=== PATIENT | female | born 1995 | race Hispanic/Latino ===

== ENCOUNTER 2022-11-11 23:36 | Emergency (ER) | payer MEDICAID, OTHER, SELFPAY ==
[2022-11-12] MEDS ORDERED: Morphine 4 MG/ML VIAL ONE ×3 (00:29→06:50)
[2022-11-12 00:30] LABS: #Lymphocytes 1.4 thou/uL (1.20-3.40); #Monocytes 0.5 thou/uL (0.11-0.59); #Neutrophils 9.3 thou/uL (1.40-6.50); %Basophils 0.3 % (0.0-1.0); %Eosinophils 0.3 % (0.0-10.0); %Lymphocytes 12.2 % (21.0-51.0); %Monocytes 4.8 % (0.0-10.0); %Neutrophils 82.3 % (42.0-75.0); Hematocrit 35.4 % (36.0-47.0); Hemoglobin 11.7 g/dL (12.0-16.0); INR-International Normal Ratio 0.9; Mean Corpuscular HGB CONC 33.1 g/dL (32.0-36.0); Mean Corpuscular Hemoglobin 30.1 pg (27.0-31.0); Mean Corpuscular Volume 91.1 fl (78.0-98.0); Mean Platelet Volume 5.8 fL (7.4-10.4); Platelet Count 424 10x3/uL (130-400); Prothrombin Time 12.8 sec (12.0-14.7); RBC Distribution Width 12.4 % (11.5-14.5); Red Blood Cell (RBC) Count 3.88 mill/uL (4.20-5.40); White Blood Cell (WBC) Count 11.3 10x3/uL (4.8-10.8)
[2022-11-12] MEDS ORDERED: hydrALAZINE 20 MG/ML VIAL ONE ×2 (00:30→02:30)
[2022-11-12] MEDS ORDERED: Ondansetron PF 4 MG/2 ML Vial ONE (00:30)
[2022-11-12 00:31] LABS: PTT 29.3 sec (22.9-36.1)
[2022-11-12 00:38] LABS: ALT (SGPT) 38 U/L (8-55); AST (SGOT) 52 U/L (5-34); Albumin 3.5 g/dL (3.5-5.0); Alkaline Phosphatase 277 U/L (40-110); Anion Gap 18 mmol/L (10-20); BUN (Urea Nitrogen) 11 mg/dL (7.0-18.7); Bilirubin, Total 1.1 mg/dL (0.2-1.2); Calc. Creatinine Clearance 0 mL/min (70-130); Calcium 8.6 mg/dL (7.8-10.44); Carbon Dioxide 22 mmol/L (22-29); Chloride 105 mmol/L (98-107); Estimated GFR 107; Globulin 3.7 g/dL (2.4-3.5); Glucose 124 mg/dL (70-105); Potassium 4.3 mmol/L (3.5-5.1); Protein, Total 7.2 g/dL (6.0-8.3); Sodium 141 mmol/L (136-145)
[2022-11-12 00:44] LABS: Troponin I Less than 0.010 ng/mL (< 0.028)
[2022-11-12 01:57] LABS: Lipase 85 U/L (8-78)
[2022-11-12 02:10] LABS: Bilirubin Negative (Negative); Blood, Urine Large (Negative); Clarity Clear (Clear); Glucose, Urine (Dipstick) Negative (Negative); Ketone, Urine Negative (Negative); Leukocyte Negative (Negative); Nitrite Negative (Negative); Protein, Urine (Dipstick) 30 mg/dL (Neg-Trace); Specific Gravity, Urine 1.015 (1.005-1.030); pH, Urine 5.5 (5.0-9.0)
[2022-11-12 02:20] LABS: Bacteria/HPF None Seen HPF (None Seen); CAUTI Indications for Culture Fever or rigors; Squamous Epithelial 0-3 HPF (0-3); WBC/HPF 0-3 HPF (0-3)
[2022-11-12 02:21] LABS: Urine Culture Reflex No No
[2022-11-12] MEDS ORDERED: cefTRIAXone (ROCEPHIN) 2 GM VIAL ONE (07:29)
[2022-11-12] MEDS ORDERED: Sodium Chloride 0.9% 100 ML ONE (07:29)
[2022-11-12] MEDS ORDERED: Labetalol HCl 100 MG/20 ML VIAL ONE (07:46)
[2022-11-12] MEDS ORDERED: Iopamidol 370 76% 100 ML VIAL ONE (09:44)
== END 2022-11-12 08:30 | disposition short-term general hospital (02) ==
LOC: BURERS 23:36
DX: K85.90 Acute pancreatitis without necrosis or infection, unspecified (principal); I10 Essential (primary) hypertension
CPT/HCPCS: 36415; 71045; 74177; 80053; 81001; 83605; 83690; 83880; 84484; 85025; 85610; 85730; 87040; 93005; 96361; 96365; 96375; 96376; J0360; J0696; J2270; J2405; J3490; Q9967